=== PATIENT | female | born 1980 | race Caucasian/White ===

== ENCOUNTER 2017-11-13 23:09 | Emergency (ER) | payer OTHER ==
[~2017-11-13] VITALS: Ht 152.4 cm; Wt 127.1 kg
[~2017-11-13 23:09] MED LIST: KEFLEX500 MG PO; Motrin PO; Percocet 5/325,Endoc PO
[2017-11-13 23:52] LABS: HEMATOCRIT 39.7 % (36.0-46.0); HEMOGLOBIN 13.6 G/DL (11.9-15.5); MCH 29.2 PG (29.0-34.0); MCHC 34.3 G/DL (30.0-36.0); MCV 85.4 FL (83-99); PLATELET COUNT 151 K/uL (156-360); RBC DIS.WIDTH-CV 12.7 % (11.8-14.6); RBC DIS.WIDTH-SD 38.7 % (39-53); RED BLOOD COUNT 4.65 M/uL (3.80-5.20); WHITE BLOOD COUNT 9.4 K/uL (4.1-10.2)
[2017-11-14 00:01] LABS: CHLORIDE 105 mEq/L (99-109); POTASSIUM 3.8 mEq/L (3.7-5.4); SODIUM 138 mEq/L (136-147)
[2017-11-14 00:03] LABS: GLUCOSE 120 mg/dL (70-99)
[2017-11-14 00:07] LABS: CREATININE 0.8 mg/dL (0.6-1.3); GFR ESTIMATE (CALCULATED) > 59 mL/min/
[2017-11-14 00:08] LABS: UREA NITROGEN (BUN) 14 mg/dL (9-23)
[2017-11-14] MEDS ORDERED: VENTOLIN HFA18 GM IH (00:52)
[2017-11-14] MEDS ORDERED: PREDNISONE50 MG PO (00:52)
[2017-11-14 00:54] VITALS: BP 132/80
== END 2017-11-14 00:54 | disposition home or self-care (01) ==
LOC: EME 23:09
DX: J45.909 Unspecified asthma, uncomplicated (principal); K21.9 Gastro-esophageal reflux disease without esophagitis; F41.9 Anxiety disorder, unspecified; Z87.891 Personal history of nicotine dependence; Z90.49 Acquired absence of other specified parts of digestive tract
CPT/HCPCS: 71046; 80048; 85027; 93005; 94640; 94664; 99281; 99283